=== PATIENT | male | born 1985 | race Caucasian/White ===

== ENCOUNTER 2021-10-29 16:27 | Emergency (ER) | payer MEDICARE, SELFPAY ==
[2021-10-29 16:29] VITALS: BP 213/123; PULSE 95; RESP 24; TEMP 36.9; O2SAT 97; BMI 66.9
--- NOTE | 2021-10-29 16:40 | ED.NURSE ---
[phone]
--- NOTE | 2021-10-29 16:58 | ED.NURSE ---
Spoke with Lebron Almonte at [facility]. She states that patient can be discharged back into their care with new prescriptions. Requested RX be faxed directly to [facility] at [phone]
--- NOTE | 2021-10-29 17:02 | ED.ALCOHOL ---
HPI - Alcohol General Time Seen by Provider: 17:02 Date Seen: 10/29/21 Chief Complaint: Alcohol/Intoxication Stated Complaint: My blood pressure was elevated at rehab Time Seen by Provider: 10/29/21 16:31 History of Present Illness HPI narrative: Patient is a 35-year-old gentleman who has been drinking heavily for the last several weeks. He checked himself in to rehab and now is developing elevated blood pressure and some mild agitation. He has had no chest pain no shortness of breath no nausea no vomiting no fevers no chills. His last drink was approximately 24 hours ago. Patient states he has no history of alcohol withdrawal in the past. Amount of alcohol consumed: 1 L of whiskey per day. Related Data Previous Rx's Medication Instructions Recorded Ativan 1 mg tablet (lorazepam) 1 mg PO TID PRN #14 tab NS MDD 2 10/29/21 metoprolol tartrate 25 mg tablet 25 mg PO BID #60 tab 10/29/21 Allergies Allergy/AdvReac Type Severity Reaction Status Date / Time Penicillins Allergy Mild hives Verified 10/29/21 16:35 Review of Systems Status of ROS Reports: 10 or more systems reviewed and unremarkable except as noted in History and below Exam Narrative: Exam Narrative: EXAM GENERAL: Patient appears tremulous and agitated. EYES: No scleral icterus. LYMPH: No supraclavicular or cervical lymphadenopathy. SKIN: Visible skin seen during exam normal or with benign process only. EXT: No dependent lower extremity pedal edema. HEART: Regular rate and rhythm with no murmurs, rubs, or gallops. LUNGS: Clear to auscultation bilaterally with no crackles or wheezes. ABD: Soft, non tender, non distended. PSYCH: Good eye contact, speech is not pressured. Const: Vital Signs, click to edit/add: Vital Signs - 24 hr 10/29/21 16:29 Temperature 98.4 F Pulse Rate [Pulse Oximeter] 95 Respiratory Rate 24 Blood Pressure [Ri ght Upper Arm] 213/123 H Pulse Oximetry 97 Course Vital Signs Vital signs: Initial Vital Signs Temperature 98.4 F 10/29/21 16:29 Temperature Source Temporal Artery Scan 10/29/21 16:29 Pulse Rate 95 10/29/21 16:29 Respiratory Rate 24 10/29/21 16:29 Blood Pressure 213/123 H 10/29/21 16:29 Blood Pressure Mean 153 10/29/21 16:29 Blood Pressure Position Supine 10/29/21 16:29 Pulse Oximetry 97 10/29/21 16:29 Oxygen Delivery Method 10/29/21 16:29 Vital Signs Temperature 98.4 F 10/29/21 16:29 Pulse Rate 95 10/29/21 16:29 Respiratory Rate 24 10/29/21 16:29 Blood Pressure 213/123 H 10/29/21 16:29 Pulse Oximetry 97 10/29/21 16:29 Temperature 98.4 F 10/29/21 16:29 Pulse Rate 95 10/29/21 16:29 Respiratory Rate 24 10/29/21 16:29 Blood Pressure 213/123 H 10/29/21 16:29 Pulse Oximetry 97 10/29/21 16:29 Discharge Plan Discharge Clinical Impression: Alcohol withdrawal syndrome Patient Disposition: Home, Self-Care Condition: Stable Instructions: Alcohol Withdrawal (ED) Activity Level: Activity as Tolerated Discharge Diet: Regular Prescriptions: New lorazepam [Ativan] 1 mg tablet 1 mg PO TID MDD 2 PRN (Reason: agitation) Qty: 14 0RF metoprolol tartrate 25 mg tablet 25 mg PO BID Qty: 60 2RF Stand Alone Forms: [facility] Info Instructions
[2021-10-29] MEDS: LORazepam 1 MG TABLET PO ×2 (17:23→18:58)
[2021-10-29 17:30] VITALS: BP 208/119
[2021-10-29 18:00] VITALS: BP 218/143; RESP 18; O2SAT 98
[2021-10-29 18:30] VITALS: BP 226/125
[2021-10-29] MEDS: METOPROLOL TARTRATE 25 MG TABLET PO (18:58)
--- NOTE | 2021-10-29 19:06 | ED.NURSE ---
Roger, director of [facility], will be coming to pick patient up at about 2000.
[2021-10-29 19:30] VITALS: BP 223/148; PULSE 104; O2SAT 95
[2021-10-29 20:00] VITALS: BP 207/124; PULSE 101
== END 2021-10-29 20:39 | disposition home or self-care (01) ==
LOC: ED 17:49
PROVIDERS: Emergency Provider Internal Medicine
DX: F10.239 Alcohol dependence with withdrawal, unspecified (principal)
CPT/HCPCS: 99283; 99284; A9270